=== PATIENT | male | born 1995 | race Caucasian/White ===

== ENCOUNTER 2018-08-13 09:24 | Emergency (ER) | payer OTHER ==
[2018-08-13 09:49] VITALS: BP 133/78
[2018-08-13] MEDS ORDERED: Ibuprofen TAB* 600 MG PO ONE (10:13)
--- NOTE | 2018-08-13 10:20 | UC ---
Cardiac HPI - HPI Summary HPI Summary: 23-year-old male comes to clinic with a chief complaint of left-sided chest pain. This was sudden onset last evening while at rest. Feels the pain originates in the left upper posterior chest and wraps around the front. No rash. Patient reports he is a chronic cough. Pain is worse with taking a deep breath or coughing. He's had minimal URI symptoms. No sputum production. He does she feel short of breath with activity. Has not Been having any wheezing. He's had chills is found to have a temperature of 100.6 here in clinic. - History of Current Complaint Chief Complaint: UCBackPain Stated Complaint: BACK PAIN Time Seen by Provider: 08/13/18 09:52 Pain Intensity: 8 - Allergy/Home Medications Allergies/Adverse Reactions: Allergies Allergy/AdvReac Type Severity Reaction Status Date / Time No Known Allergies Allergy Verified 08/13/18 09:41 PMH/Surg Hx/FS Hx/Imm Hx Previously Healthy: Yes - Surgical History Surgical History: None Surgery Procedure, Year, and Place: ear tubes - Family History Known Family History: Positive: None, Blood Disorder - FHx Factor 5 Leiden/DVTs - Social History Alcohol Use: None Substance Use Type: Marijuana Substance Use Comment - Amount & Last Used: daily Smoking Status (MU): Heavy Every Day Tobacco Smoker Type: Cigars Amount Used/How Often: 4-5 cigars/day Length of Time of Smoking/Using Tobacco: 1 year Have You Smoked in the Last Year: No Review of Systems All Other Systems Reviewed And Are Negative: Yes Constitutional: Positive: Fever, Chills Skin: Positive: Negative Eyes: Positive: Negative ENT: Positive: Negative Respiratory: Positive: Shortness Of Breath, Cough, Other - see hpi Cardiovascular: Positive: Chest Pain Gastrointestinal: Positive: Negative Motor: Positive: Negative Neurovascular: Positive: Negative Musculoskeletal: Positive: Negative Neurological: Positive: Negative Psychological: Positive: Negative Is Patient Immunocompromised?: No Physical Exam Triage Information Reviewed: Yes Appearance: Well-Nourished, Ill-Appearing - mild, Pain Distress - mild with deep breaths and cough Vital Signs: Initial Vital Signs Temp 100.6 F 08/13/18 09:41 Pulse 98 08/13/18 09:41 Resp 18 08/13/18 09:41 BP 133/78 08/13/18 09:41 Pulse Ox 100 08/13/18 09:41 Vital Signs Reviewed: Yes Eye Exam: Normal Eyes: Positive: Conjunctiva Clear ENT: Positive: Pharynx normal, TMs normal Neck exam: Normal Neck: Positive: Supple Respiratory: Positive: Lungs clear, Normal breath sounds, No respiratory distress Cardiovascular: Positive: RRR, Other: - Mild tenderness to palpation to the left of the upper thoracic area over the upper scapula. There is no rash in this area. Tenderness is minimal. Musculoskeletal Exam: Normal Musculoskeletal: Positive: Strength Intact, ROM Intact, No Edema, Other: - no calf tenderness Neurological Exam: Normal Neurological: Positive: Alert, Muscle Tone Normal Psychological Exam: Normal Psychological: Positive: Age Appropriate Behavior Skin Exam: Normal Skin: Negative: Rashes - Assessment/Plan Course Of Treatment: Patient Name: WILFREDO AVELAR Medical Record#: [id number]. Ordering Physician: Ross Moore MD Acct.#: [id number]. : 1995 Age: 23 Sex: M Location: [facility]. Exam Date: 05/21 1013 ADM Status: REG ER. Order Information: CHEST PA LAT 2 VWS. Accession Number: [id number]. CPT: 16027. HISTORY: SUDDEN ONSET LEFT SPLINTING PAIN,T 100.6. COMPARISONS: July 07, 2015. VIEWS: 4: Frontal dual- energy and lateral views of the chest. FINDINGS: CARDIOMEDIASTINAL SILHOUETTE : The cardiomediastinal silhouette is normal. CARMENCITA: The carmencita are normal. PLEURA: The costophrenic angles are sharp. No pleural abnormalities are noted. LUNG PARENCHYMA: There is rounded, focal confluent alveolar opacification of the left. middle lobe. ABDOMEN: The upper abdomen is clear. There is no subphrenic gas. BONES AND SOFT TISSUES: No bone or soft tissue abnormalities are noted. OTHER: None. IMPRESSION: LEFT MIDDLE LOBE CONSOLIDATION. RECOMMEND FOLLOW-UP UNTIL RESOLUTION TO EXCLUDE UNDERLYING. PULMONARY PARENCHYMAL PATHOLOGY. ____. <Electronically signed by Sawyer Fuentes MD in OV> 08/13/18 1027. I discussed the x-ray report with the patient and his mother. There is consolidation on the left side which we will treat as a community-acquired pneumonia. There is a strong family history of blood clots and his mother has factor V Leiden. Patient has no calf pain or calf tenderness or calf swelling today. He has had some mild upper respiratory tract infection symptoms prior to the onset of the pain and now he has a fever. We did discuss the possibility of a blood clot although with the course and the chest x-ray findings it's more consistent with a pneumonia. I also recommended he needs to follow-up his primary care doctor after for further imaging to ensure complete resolution and make sure there is no underlying pathology. Also discussed if he gets worse he needs to the emergency department for further evaluation and care. There is a relatively high resistance of strep pneumonia to azithromycin and the local area therefore I chose combination macrolide beta-lactam treatment by adding Augmentin into the azithromycin. - Clinical Impression Provider Diagnosis: Pneumonia, Chest pain Discharge - Sign-Out/Discharge Documenting (check all that apply): Patient Departure All imaging exams completed and their final reports reviewed: Yes - Discharge Plan Condition: Stable Disposition: HOME Prescriptions: Amoxicillin/Clavulanate TAB* [Augmentin TAB 875*] 875 mg PO BID #20 tab Azithromyxin MICHA (NF) [Z-Micha (Zithromax) 250 mg tabs #6] 2 tab PO .TODAY, THEN 1 DAILY #6 tab Patient Education Materials: Pneumonia (ED) Forms: *Work Release Referrals: Shanti Lynn MD [Primary Care Provider] - Additional Instructions: FOLLOW UP WITH YOUR DOCTOR FOR FURTHER X-RAY IMAGING (X-RAY OR CT) TO ENSURE FULL RESOLUTION OF YOUR LUNG CONSOLIDATION. GO TO THE EMERGENCY DEPARTMENT FOR ANY WORSENING OF YOUR CONDITION; SHORTNESS OF BREATH, YOU FEEL ILL, PAIN, CALF SWELLING OR PAIN OR QUESTIONS OR CONCERNS. - Billing Disposition and Condition Condition: STABLE Disposition: Home
[2018-08-13 16:30] LABS: ABS Basophils 0 10^3/ul (0-0.2); ABS Eosinophils 0.1 10^3/ul (0-0.6); ABS Lymphocytes 1.8 10^3/ul (1.0-4.8); ABS Monocytes 1.1 10^3/ul (0-0.8); ABS Neutrophils 13.4 10^3/ul (1.5-7.7); ABS Nucleated RBC 0 10^3/ul; Eosinophil % 0.3 %; Hematocrit 46 % (42-52); Hemoglobin 15.7 g/dl (14.0-18.0); Lymphocyte % 10.9 %; Mean Corpuscular HGB Conc 34 g/dl (31-36); Mean Corpuscular Hemoglobin 31 pg (27-31); Mean Corpuscular Volume 92 fL (80-94); Mean Platelet Volume 7.8 fL (7.4-10.4); Nucleated Red Blood Cells % 0.1; Platelet Count 317 10^3/ul (150-450); Red Blood Count 4.99 10^6/ul (4.00-5.40); Red Cell Distribution Width 13 % (10.5-15); White Blood Count 16.3 10^3/ul (3.5-10.8)
[2018-08-13 16:34] LABS: Albumin 4.6 g/dL (3.2-5.2); Calcium 9.5 mg/dL (8.6-10.3); Potassium 4.5 mmol/L (3.5-5.0); Total Bilirubin 0.7 mg/dL (0.2-1.0)
[2018-08-13 16:40] LABS: Albumin/Globulin Ratio 1.8 (1-3); BUN/Creatinine Ratio 11.1 (8-20); C Reactive Protein 26.99 mg/L (<8.01); EGFR African American 160.9 (>60); Globulin 2.6 g/dL (2-4); Total Protein 7.2 g/dL (6.4-8.9)
[2018-08-13 16:53] LABS: INR 1.01 (0.77-1.02)
--- NOTE | 2018-08-14 12:09 | UC ---
- Progress Note Progress Note: Reviewed blood work from 08/13/18. WBC / CRP elevated. Upon review of urgent care notes from yesterday, these results are consistent with dx. RN to call pt to advise of results, to continue abx as prescribed, f/u with PCP. Go to ED for worse or new problems. Course/Dx - Diagnoses Provider Diagnoses: Pneumonia, Chest pain Discharge - Sign-Out/Discharge Documenting (check all that apply): Post-Discharge Follow Up All imaging exams completed and their final reports reviewed: Yes - Discharge Plan Condition: Stable Disposition: HOME Prescriptions: Amoxicillin/Clavulanate TAB* [Augmentin TAB 875*] 875 mg PO BID #20 tab Azithromyxin VICTORIANO (NF) [Z-Victoriano (Zithromax) 250 mg tabs #6] 2 tab PO .TODAY, THEN 1 DAILY #6 tab Patient Education Materials: Pneumonia (ED) Forms: *Work Release Referrals: Shanti Lynn MD [Primary Care Provider] - Additional Instructions: FOLLOW UP WITH YOUR DOCTOR FOR FURTHER X-RAY IMAGING (X-RAY OR CT) TO ENSURE FULL RESOLUTION OF YOUR LUNG CONSOLIDATION. GO TO THE EMERGENCY DEPARTMENT FOR ANY WORSENING OF YOUR CONDITION; SHORTNESS OF BREATH, YOU FEEL ILL, PAIN, CALF SWELLING OR PAIN OR QUESTIONS OR CONCERNS. - Billing Disposition and Condition Condition: STABLE Disposition: Home
== END 2018-08-13 11:19 | disposition home or self-care (01) ==
LOC: UCEAST 09:24
DX: J18.9 Pneumonia, unspecified organism (principal); R07.89 Other chest pain; F17.210 Nicotine dependence, cigarettes, uncomplicated
CPT/HCPCS: 36415; 71046; 80053; 85025; 85610; 86140; 99202; A9270-GY; G0463